=== PATIENT | female | born 1950 | race Caucasian/White ===

== ENCOUNTER → 2018-08-16 | Outpatient (CLI) | payer BC ==
[~2018-08-16] MED LIST: SIMV20TA2
--- NOTE | 2018-08-16 17:19 | REP ---
RIGHT ANKLE, FOUR VIEWS: HISTORY: Swelling. There is no acute fracture or dislocation. The joint space is normal in appearance. An osteophyte is present on the inferior calcaneus. Soft tissue swelling is present. IMPRESSION:There is no acute fracture or dislocation. Electronically Signed by Rome Soares MD 08/16/2018 05:27 P
== END ==
LOC: M LRY 12:42
PROVIDERS: ATTEND Nurse Practitioner Family
DX: M25.471 Effusion, right ankle (principal)

== ENCOUNTER 2018-08-19 14:22 | Emergency (ER) | payer BC ==
[~2018-08-19] VITALS: Ht 157.5 cm; Wt 70.8 kg
[2018-08-19] MEDS ORDERED: SIMV20TA2 (14:27)
[2018-08-19 17:56] VITALS: BP 110/62
--- NOTE | 2018-08-19 18:36 | REP ---
REASON: Pain and swelling. TECHNIQUE: Multiple ultrasonographic images of the deep venous structures of the right thigh were obtained from the common femoral vein to the popliteal vein along with Doppler interrogation and color flow Doppler images. FINDINGS: There is no abnormal echogenic material seen within any of the visualized deep venous structures that would suggest acute thrombosis. Coaptation is unremarkable throughout. Doppler interrogation shows an expected response to respiratory variability and augmentation. The color flow images show what appears to be a normal vascular pattern throughout. IMPRESSION: There is no ultrasonographic evidence of deep venous thrombosis involving any of the visualized deep venous structures of the right thigh, as described above. Electronically Signed by Jose Wolfe DO 08/22/2018 12:54 P
== END 2018-08-19 17:57 | disposition home or self-care (01) ==
LOC: M ED 14:22
DX: R22.31 Localized swelling, mass and lump, right upper limb (principal); E78.5 Hyperlipidemia, unspecified; Z88.1 Allergy status to other antibiotic agents; F17.210 Nicotine dependence, cigarettes, uncomplicated

== ENCOUNTER 2021-06-13 15:07 | Emergency (ER) | payer BC, SELFPAY ==
[~2021-06-13] VITALS: Ht 157.5 cm; Wt 60.6 kg
[~2021-06-13 15:07] MED LIST changes: -SIMV20TA2; +SIMV20TA22
[2021-06-13 15:10] VITALS: BP 114/66
== END 2021-06-13 19:02 | disposition left against medical advice (07) ==
LOC: M ED 15:07
DX: Z53.21 Procedure and treatment not carried out due to patient leaving prior to being seen by health care provider (principal)

== ENCOUNTER 2023-07-08 08:30 | Day surgery (SDC) | payer OTHER ==
[~2023-07-08] VITALS: Ht 157.5 cm; Wt 68.3 kg
[~2023-07-08 08:30] MED LIST changes: +propofoL 200 MG/20 ML VIAL As Ordered ONE; +propofoL 500 MG/50 ML VIAL As Ordered ONE
[2023-07-08] MEDS: NS 1,000 ML IV ONE (09:02)
[2023-07-08 09:57] VITALS: TEMP 97.9
[2023-07-08 10:14] VITALS: BP 111/67; O2SAT 99
== END 2023-07-08 10:34 | disposition home or self-care (01) ==
LOC: M OPP 08:30
PROVIDERS: ATTEND Surgery
DX: Z12.11 Encounter for screening for malignant neoplasm of colon (principal); Z80.0 Family history of malignant neoplasm of digestive organs; Z88.1 Allergy status to other antibiotic agents

== ENCOUNTER → 2024-07-26 | Outpatient (REF) | payer OTHER ==
[~2024-07-26] MED LIST changes: -propofoL 200 MG/20 ML VIAL As Ordered ONE; -propofoL 500 MG/50 ML VIAL As Ordered ONE
== END ==
LOC: M SFHCLERA 14:10
PROVIDERS: ATTEND Internal Medicine
DX: Z53.9 Procedure and treatment not carried out, unspecified reason (principal)

== ENCOUNTER → 2024-07-31 | Outpatient (CLI) | payer OTHER ==
[2024-07-31 16:30] LABS: IONIZED CALCIUM 5.1 MG/DL (4.5-5.3)
[2024-07-31 16:54] LABS: HEMOGLOBIN A1c 5.7 % (4.0-6.0)
[2024-07-31 17:17] LABS: CALCIUM LEVEL 10.9 MG/DL (8.3-10.6); CREATININE FOR GFR 0.84 MG/DL (0.55-1.30); GLOMERULAR FILTRATION RATE 73.8 (>39); POTASSIUM SERUM 4.1 MMOL/L (3.5-5.1); PTH INTACT 93.7 PG/ML (18.5-88.0); THYROID STIMULATING HORMONE 1.136 uIU/ML (0.55-4.78); TOTAL 25(OH) VITAMIN D 31.2 NG/ML (20.0-100.0); TOTAL PROTEIN 6.5 G/DL (5.7-8.2)
[2024-07-31 17:18] LABS: FOLATE 14.4 NG/ML (>5.4)
== END ==
LOC: M LAB 15:47
PROVIDERS: ATTEND Internal Medicine
DX: E83.52 Hypercalcemia (principal); R26.81 Unsteadiness on feet

== ENCOUNTER → 2024-08-01 | Outpatient (REF) | payer OTHER ==
[2024-08-01 18:02] LABS: APPEARANCE, URINE CLEAR (CLEAR); BACTERIA, URINE AUTO NEGATIVE (NEGATIVE); BILIRUBIN, URINE AUTO NEGATIVE (NEGATIVE); BLOOD, URINE BLOOD NEGATIVE (NEGATIVE); COLOR, URINE STRAW (YELLOW); GLUCOSE, URINE (UA) AUTO NEGATIVE (NEGATIVE); KETONE, URINE AUTO NEGATIVE (NEGATIVE); LEUKOCYTE ESTERASE, URINE AUTO NEGATIVE (NEGATIVE); NITRITE, URINE AUTO NEGATIVE (NEGATIVE); PROTEIN, URINE AUTO NEGATIVE (NEGATIVE); RBC, URINE AUTO 0 /HPF (0-3); SPECIFIC GRAVITY URINE AUTO 1.004 (1.002-1.035); SQUAMOUS EPITHELIAL CELL UR AU 0 /HPF (0-6); UROBILINOGEN, URINE AUTO 0.2 mg/dL (0.0-2.0); WBC, URINE AUTO 1 /HPF (0-3)
== END ==
LOC: M SFHCLERA 14:04
PROVIDERS: ATTEND Internal Medicine
DX: E83.52 Hypercalcemia (principal)

== ENCOUNTER → 2024-09-21 | Outpatient (REF) | payer MEDICARE, OTHER ==
[2024-09-21 17:27] LABS: IONIZED CALCIUM 5.3 MG/DL (4.5-5.3)
[2024-09-21 17:36] LABS: CALCIUM LEVEL 10.6 MG/DL (8.3-10.6); CHOLESTEROL LEVEL 342.0 MG/DL (<200); CHOLESTEROL RISK RATIO 4.73 (<5); LDL CHOLESTEROL 236.7 MG/DL (<100); NON-HDL-C 269.7 MG/DL; PTH INTACT 99.8 PG/ML (18.5-88.0); TRIGLYCERIDES LEVEL 165.0 MG/DL (<150)
== END ==
LOC: M SFHCLERA 15:16
PROVIDERS: ATTEND Internal Medicine
DX: E21.0 Primary hyperparathyroidism (principal); E78.2 Mixed hyperlipidemia

== ENCOUNTER → 2025-03-02 | Outpatient (CLI) | payer OTHER | LOC: M PLARAD 13:48 | PROVIDERS: ATTEND Neurological Surgery | DX: D49.7 Neoplasm of unspecified behavior of endocrine glands and other parts of nervous system (principal) ==